=== PATIENT | female | born 1965 | race Caucasian/White ===

== ENCOUNTER 2017-05-09 09:39 | Emergency (ER) | payer BC ==
[2017-05-09] MEDS ORDERED: HYDROmorphone 1 MG/ML Syringe IM ONE (10:34)
[2017-05-09] MEDS ORDERED: HYDROmorphone 0.5 MG/0.5 ML SYRINGE IM ONE (10:40)
[2017-05-09] MEDS ORDERED: HYDROmorphone 0.5 MG/0.5 ML SYRINGE ONE (10:47)
--- NOTE | 2017-05-09 11:01 | EDM.PDOC ---
ED HPI GENERAL MEDICAL PROBLEM - General Chief Complaint: Back Pain or Injury Stated Complaint: R SIDE BACK AND ABDOMINAL PAIN Time Seen by Provider: 05/09/17 10:08 Source of Information: Reports: Patient History Limitations: Reports: No Limitations - History of Present Illness INITIAL COMMENTS - FREE TEXT/NARRATIVE: 51 y/o F presents for R upper back pain. She has a history of failed back syndrome and has chronic low back pain. She states she had a twisting injury of her upper back 5 weeks ago. Saw PCP who prescribed steroids. She didn't really improve but pain was tolerable on her usual medications which include tizanidine , lidoderm, gabapentin, and NSAID's. However a few days ago had another twisting injury when getting into a car. No fall. Since then she's had more severe pain in her R upper back and shoulder. Worse with movement. Worse with arm movements. Slightly better with rest. Pain is currently severe. No chest pain, cough, SOB, abd pain, nausea, hematuria/dysuria. Right Middle Back Pain Score (Numeric/FACES): 9 - Related Data Allergies Allergy/AdvReac Type Severity Reaction Status Date / Time No Known Allergies Allergy Verified 05/09/17 10:01 Home Meds: Home Meds Hydrocodone/Acetaminophen [Vicodin 5-300 mg Tablet] 1 each PO TID PRN #10 tablet 05/09/17 [Rx] Past Medical History HEENT History: Reports: Impaired Vision Cardiovascular History: Reports: Hypertension Respiratory History: Reports: COPD Other Gastrointestinal History: "bowel problems- no dx yet" Psychiatric History: Reports: Anxiety, Depression - Past Surgical History GI Surgical History: Reports: Cholecystectomy Other Musculoskeletal Surgeries/Procedures:: Lower back surgery and hand surgery Social & Family History - Family History Family Medical History: Noncontributory - Tobacco Use Smoking Status *Q: Current Every Day Smoker Years of Tobacco use: 30 Packs/Tins Daily: 1 - Recreational Drug Use Recreational Drug Use: No ED ROS GENERAL - Review of Systems Review Of Systems: See Below Constitutional: Denies: Fever HEENT: Reports: No Symptoms Respiratory: Denies: Shortness of Breath, Cough Cardiovascular: Denies: Chest Pain Endocrine: Reports: No Symptoms GI/Abdominal: Denies: Abdominal Pain : Denies: Dysuria, Flank Pain, Hematuria Musculoskeletal: Reports: Neck Pain, Shoulder Pain, Back Pain Skin: Reports: No Symptoms Neurological: Denies: Paresthesia, Weakness ED EXAM, UPPER BACK/NECK PAIN - Physical Exam Exam: See Below Exam Limited By: No Limitations General Appearance: Alert, WD/WN, No Apparent Distress Eye Exam: Bilateral Eye: Normal Inspection Ears Exam: Normal External Exam Nose Exam: Normal Inspection Throat/Mouth Exam: Normal Inspection, Normal Voice, No Airway Compromise Head Exam: Atraumatic, Normocephalic Neck Exam: Other (Normal inspection, TTP in R lower paraspinal musculature and trapezius area) Cardiovascular/Respiratory: Regular Rate, Rhythm, Normal Peripheral Pulses, Normal Breath Sounds, No Respiratory Distress GI/Abdominal: Soft, Non-Tender, No Distention Back Exam: Normal Inspection, Other (Mid thoracic TTP. + diffuse TTP of musculature of entire R posterior chest wall from level of approx T9 up to the shoulder. Skin normal. No palpable masses or deformities. ). No: CVA Tenderness (L), CVA Tenderness (R) Extremities: Normal Inspection, Other (+posterior shoulder TTP. + limited abduction of R shoulder due to pain. can abduct to about 90 degrees. No palpable deformity or mass. ) Neurologic: No Motor/Sensory Deficits, Alert, Normal Mood/Affect, Oriented x 3 Psychiatric: Normal Affect, Normal Mood Skin Exam: Normal Color, Warm/Dry Course - Vital Signs Last Recorded V/S: Last Vital Signs Temp 36.4 C 05/09/17 09:59 Pulse 106 H 05/09/17 09:59 Resp 18 05/09/17 09:59 BP 143/85 H 05/09/17 09:59 Pulse Ox 98 05/09/17 09:59 - Orders/Labs/Meds Orders: Active Orders 24 hr Category Date Time Status Chest 2V [CR] Stat Exams 05/09/17 10:34 Taken Shoulder Comp Rt [CR] Stat Exams 05/09/17 10:34 Taken Meds: Medications Discontinued Medications Generic Name Dose Route Start Last Admin Trade Name Rox PRN Reason Stop Dose Admin Hydromorphone HCl 1 mg 05/09/17 10:34 Dilaudid IM 05/09/17 10:35 ONETIME ONE Hydromorphone HCl Confirm 05/09/17 10:47 05/09/17 10:46 Dilaudid Administered 05/09/17 10:48 Not Given Dose 1 mg .ROUTE .STK-MED ONE Hydromorphone HCl 1 mg 05/09/17 10:40 05/09/17 10:46 Dilaudid IM 05/09/17 10:41 1 mg ONETIME ONE Administration - Re-Assessments/Exams Free Text/Narrative Re-Assessment/Exam: 05/09/17 11:49 CXR and shoulder XR show no abnormalities. Hx/exam consistent with musculoskeletal etiology. She is already on NSAID, tizanidine, gabapentin. [employer] review show no narcotics filled in past 9 months. Will rx short course of vicodin to help her through the weekend. Discussed risks of narcotics and need for minimal use with residential non-narcotic pain control plan incorporating physical therapy and other alternative options. Departure - Departure Time of Disposition: 11:51 Disposition: Home, Self-Care 01 Clinical Impression: Musculoskeletal pain Back pain Qualifiers: Back pain location: thoracic back pain Chronicity: acute Back pain laterality: right Qualified Code(s): M54.6 - Pain in thoracic spine Shoulder pain, right Qualifiers: Chronicity: acute Qualified Code(s): M25.511 - Pain in right shoulder - Discharge Information Prescriptions: Hydrocodone/Acetaminophen [Vicodin 5-300 mg Tablet] 1 each PO TID PRN #10 tablet PRN Reason: Pain Instructions: Shoulder Pain, [id number], Back Pain, Adult, [id number] Referrals: PCP,Not In Area [Primary Care Provider] - Forms: ED Department Discharge Additional Instructions: 1. Use heat on area of pain. Also use TENS unit and lidoderm. 2. Take your usual medications for pain. OK to take vicodin as prescribed for pain as well. Take lowest effective dose of Vicodin as this medication is addictive if taken terminologist. No driving or working when taking vicodin as it may make you sleepy or confused. This is not a residential solution for your pain. Please follow up with your primary doctor on Thursday to discuss alternatives. Also consider massage and acupuncture and physical therapy as these therapies have been shown to be more effective than medications for painful conditions. - My Orders Last 24 Hours: My Active Orders 05/09/17 10:34 Chest 2V [CR] Stat Shoulder Comp Rt [CR] Stat - Assessment/Plan Last 24 Hours: My Active Orders 05/09/17 10:34 Chest 2V [CR] Stat Shoulder Comp Rt [CR] Stat
--- NOTE | 2017-05-10 16:52 | CR ---
Right shoulder: Three views of the right shoulder were obtained. Comparison: No prior shoulder study. Glenohumeral joint and acromioclavicular joint appear unremarkable. Fracture is identified within the right seventh rib which is mildly displaced. No additional bony abnormality is appreciated. Impression: 1. Mildly displaced fracture within the right seventh rib. 2. No additional abnormality is noted on right shoulder study. Diagnostic code #3
--- NOTE | 2017-05-10 16:53 | CR ---
Chest: Two views of the chest were obtained. Comparison: No prior study. Heart size and mediastinum are normal. Lungs are clear. Bony structures are unremarkable. Surgical clips are seen from previous cholecystectomy. Impression: 1. Nothing acute is identified on two-view chest x-ray. Diagnostic code #2
== END 2017-05-09 12:01 | disposition home or self-care (01) ==
LOC: JD.ED 09:39
DX: M25.511 Pain in right shoulder (principal); M54.6 Pain in thoracic spine; I10 Essential (primary) hypertension; J44.9 Chronic obstructive pulmonary disease, unspecified; F32.9 Major depressive disorder, single episode, unspecified; F41.9 Anxiety disorder, unspecified; F17.210 Nicotine dependence, cigarettes, uncomplicated
CPT/HCPCS: 71046; 73030; 96372; 99283; J1170